=== PATIENT | male | born 2005 | race Hispanic/Latino ===

== ENCOUNTER 2024-03-30 14:14 | Emergency (ER) | payer OTHER, SELFPAY ==
--- NOTE | 2024-03-30 14:16 | ED.URI ---
HPI - URI/Sore Throat General Chief Complaint: Upper Respiratory Infection Stated Complaint: Upper Respiratory Symptoms Time Seen by Provider: 03/30/24 14:16 Source: patient Mode of arrival: ambulatory Limitations: no limitations History of Present Illness HPI Narrative: Mike is a 18-year-old male patient presenting to the clinic today with complaints of cough, nasal congestion, sore throat, and overall not feeling well. Symptoms just started this morning. He denies any known fever. MD elicited complaint: cough, sore throat, rhinorrhea and nasal congestion Related Data Allergies Allergy/AdvReac Type Severity Reaction Status Date / Time No Known Allergies Allergy Unverified 07/01/15 18:19 Review of Systems Review of Systems: Pertinent positives per HPI. Patient denies any fever, chills, rash, headache, visual changes, dizziness, shortness of breath, chest pain, palpitations, nausea, vomiting, diarrhea, constipation, abdominal pain, or any urinary issues. PMFSH Comments At the time of my signature, I reviewed and agree with the nursing past medical, surgical, social, and family history. There is no relevant family history pertinent to the patient complaint. Exam Narrative: General: Well-developed, well nourished, in no apparent distress Head: Normocephalic, atraumatic Eyes: Pupils equally round and reactive to light bilaterally, EOM intact, sclera and conjunctive clear, no discharge, lids normal Ears: TMs intact and clear, ear canals clear, no drainage, grossly hearing normal. Nose: Nares patent, clear nasal discharge, no inflammation, no sinus tenderness. Mouth: Oral pharynx without lesions or masses, good dentition, MMM. Postnasal drip Neck: Supple, trachea midline, no enlargement of anterior or posterior cervical nodes, no thyroid masses or goiter palpable. Cardio: Regular rate and rhythm, s1 and s2 normal, no murmur appreciated. Resp: Clear to auscultation bilaterally, no rhonchi, rales, wheezing or rubs Course Course Emergency Course: Portions of this record may have been created with voice recognition software. Level of Care: Express Care Visit Vital Signs Vital signs: Vital signs reviewed MDM - URI/Sore Throat MDM Narrative Medical decision making narrative: At the time of visit patient is resting comfortably on the exam table. Patient appears to be nontoxic. Labs: COVID, influenza, and strep test were all negative in the clinic today. We will send strep for culture. Plan: I suspect patient has URI/pharyngitis. Supportive measures were discussed with the patient and they voiced understanding discharge instructions and agrees to treatment plan. Return precautions reviewed Differential Diagnosis Differential diagnosis: Likely upper respiratory infection, otitis media, sinusitis, viral infection, bronchitis, influenza, pharyngitis and other (COVID) Discharge Plan Discharge Clinical Impression: Viral infection Upper respiratory infection Qualifiers: URI type: unspecified URI Qualified Code(s): J06.9 - Acute upper respiratory infection, unspecified Pharyngitis Qualifiers: Pharyngitis/tonsillitis etiology: unspecified etiology Qualified Code(s): J02.9 - Acute pharyngitis, unspecified Patient Disposition: Home, Self-Care Condition: Stable Instructions: Antibiotic Form, Pharyngitis (ED), Viral Syndrome (ED), Cold Symptoms (ED) Additional Instructions: COVID, influenza, and strep test were all negative in the clinic today. We will send strep for culture. Increase fluids and stay well hydrated Tylenol/motrin for pain/fever Flonase and OTC antihistamines as directed Vicks vapor rub to open sinuses Sinus rinses for congestion Cepacol spray, cough drops, throat lozenges, warm tea with honey/lemon, gargle salt water to soothe throat BRAT diet for diarrhea Clear liquids x 24 hours then advance as tolerated for nausea/vomiting Go to the ED if you develop a worsening in your condition- high fever not controlled by Tylenol or Motrin, dehydration, weakness, lethargy, shortness of breath, or chest pain. Follow up with your PCP in 3-5 days if symptoms persist. Patient Language: Citizen Of [place] Follow-up/Referrals: UNKNOWN,DOCTOR [Non-Staff] - Time of Disposition: 14:40 Quality NIHSS Nursing Documentation ED NIHSS nursing documentation: reviewed/agree
[2024-03-30 14:22] VITALS: BP 121/78; PULSE 90; RESP 16; TEMP 37.2; O2SAT 100
[2024-03-30 14:39] LABS: EDSTREPNEGPOS1 Negative (Negative)
[2024-03-30 14:48] LABS: EDCOVIDSCREEN Negative (Negative); EDINFLUASCREEN Negative (Negative); EDINFLUBSCREEN Negative (Negative)
== END 2024-03-30 14:45 | disposition home or self-care (01) ==
PROVIDERS: Emergency Provider Nurse Practitioner Family
DX: B34.9 Viral infection, unspecified (principal); J06.9 Acute upper respiratory infection, unspecified; J02.9 Acute pharyngitis, unspecified; Z20.822 Contact with and (suspected) exposure to COVID-19
CPT/HCPCS: 87081; 87426; 87804; 87880; 99203; G0463

== ENCOUNTER 2024-06-22 11:43 | Outpatient (CLI) | payer OTHER, SELFPAY ==
--- NOTE | ~2024-06-22 | XR_ITS ---
[id number] Ordering provider: TONIO Restrepo History: . M54.2 - Cervicalgia . Comparison: None. FINDINGS: VERTEBRAL BODIES: Normal height and alignment. No visible fracture or subluxation. The dens is intact . DISK SPACES: Well maintained. PARASPINOUS SOFT TISSUES: No prevertebral soft tissue swelling. IMPRESSION: No acute osseous abnormality cervical spine. Reviewed, dictated and finalized at location A.
== END 2024-06-22 11:44 | disposition home or self-care (01) ==
LOC: MICIMG 11:44
PROVIDERS: PCP Clinical Nurse Specialist; Visit Provider Clinical Nurse Specialist
DX: M54.2 Cervicalgia (principal)
CPT/HCPCS: 72040

== ENCOUNTER 2024-07-13 15:00 | Outpatient (NON) | payer OTHER, SELFPAY ==
--- OUTSIDE RECORDS SUMMARY | 2024-07-13 15:18 | XMS_ITS | Clinical Summary ---
Author Organization [facility] Address [address] [place] [address] Care Team Providers Care Wire Hanger Name Role Phone Unknown, Provider Primary Care Provider Unavaila ble Source Comments [facility],non-owned Affiliates and Associated Physician Practices is amultiple site organization consisting of ambulatory clinics and hospital sitesin [place], [place], [place] and [place]. This disclosure is being madepursuant to the Care Everywhere program and may not contain all information available regarding this patient. Last updated 17.[facility] Allergies No known active allergies Medications * Be aware that medications may not be up to date on this document. Alwaysverify current medications with the patient. 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:36 PM BILINGUAL SECRETARY Gender Identity Not on file Sexual Orientation Not on file Last Filed Vital Signs Vital Sign Reading Time Taken Comments Blood Pressure 118/86 11/19/2016 7:32 PM CDT Pulse 108 11/19/2016 7:32 PM CDT Temperature 37 C (98.6 F) 11/19/2016 7:32 PM CDT Respiratory Rate 28 11/19/2016 7:32 PM CDT Oxygen Saturation 98% 03/06/2016 3:13 PM BILINGUAL SECRETARY Inhaled Oxygen Concentration - - Weight 41.7 kg (91 lb 14.9 oz) 11/19/2016 7:32 P M CDT Height 147.3 cm (4' 10) 03/06/2016 3:13 PM BILINGUAL SECRETARY Body Mass Index - - Plan of Treatment Health Maintenance Due Date Last Done Comments HIV SCREENING 09/07/2019 HPV VACCINE (1 - Male 3-dose series) 09/07/2019 MENINGOCOCCAL (Group B) VACC INE SHARED DECISION-MAKING (1 of 2 - Standard) 2020 HEPATITIS C SCREENING 09/02/2022 DTAP/TDAP/TD VACCINES (1 - Tdap) 09/07/2023 HEPATITIS B VACCINE (1 of 3 - 19+ 3-dose series) 09/07/2023 COVID-19 VACCINE (1 - 2023-2 5 season) 2023 DEPRESSION SCREENING 02/12/2024 INFLUENZA VACCINE (Season Ended) 2024 ZOSTER VACCINE (1 of 2) 2054 HIB VACCINE Aged Out No longer eligi ble based on patient's age to complete this topic MENINGOCOCCAL GROUPS A/C/Y/W VACCINE Aged Out No longer eligible b ased on patient's age to complete this topic PNEUMOCOCCAL VACCINE Aged Out No long er eligible based on patient's age to complete this topic Insurance MEDICAID - [place] Care Teams Wire Hanger Relationship Specialty Start Date End Date Unknown, Provider PCP - General 03/06/16
--- OUTSIDE RECORDS SUMMARY | 2024-07-13 15:18 | XMS_ITS | Clinical Summary ---
Author Organization [facility] Address [address] [place] [address] Phone Care Team Providers Care Third Loader Name Role Phone Provider, None Primary Care Provider Unavailabl e Allergies No known active allergies Medications fluticasone (FLONASE) 50 MCG/ACT Suspension 2 Sprays by Nasal route. 03/06/2016 Active Active Problems No known active problems Immunizations Immunization Administration Dates Next Due DTAP VACCINE 02/16/2005,2004 DTAP-IPV 04/26/2009 DTAP/HEPB/IPV Vaccine 06/15/2005 HEP B/HIB Combined Vaccine 2004 Hepatitis A Vaccine, Pediatr ic/adolescent, 2 Dose Schedule 10/20/2013 Hepatitis A, Pediatric, Unsp ecified Formulation 04/26/2009 Hepatitis B Vaccine, Pediatric/adolescent 2004 Hib Vaccine,unspecified Formulation 02/16/2005 Human Papillomavirus (HPV) 9-valent Vaccine 04/13,01/10/2015 Human Papillomavirus Vaccine (HPV), quadrivalent 10/20/2013 Inactivated Polio Vaccine 02/16/2005,2004 Influenza Vaccine Quadrivalent Nasal 01/10/2015, 03/03/2014 Influenza Vaccine, Quadrivalent, PF 12/12/2018 MMR Vaccine 04/26/2009 MMRV 10/25/2009 Meningococcal Vaccine 10/19/2015 Pneumococcal Vaccine Peds - 7 Valent 06/15/2005, 02/16/2005,2004 TDAP Vaccine 10/19/2015 Varicella Vaccine Live 04/26/2009 Social History Tobacco Use Types Packs/Day Years Used Date Smoking Tobacco: Never Smokeless Tobacco: Never Alcohol Use Standard Drinks/Week Comments Never 0 (1 standard drink = 0.6 oz pur e alcohol) Sex and Gender Information Value Date Recorded Sex Assigned at Not on file Legal Sex Male 2:47 PM CDT Gender Identity Not on file Sexual Orientation Not on file Last Filed Vital Signs Vital Sign Reading Time Taken Comments Blood Pressure 98/66 10/06/2020 4:01 PM CDT Pulse 84 10/06/2020 4:01 PM CDT Temperature 36.3 C (97.4 F) 10/06/2020 4:01 PM CDT Respiratory Rate 12 10/06/2020 4:01 PM CDT Oxygen Saturation 98% 10/06/2020 4:01 PM CDT Inhaled Oxygen Concentration - - Weight 67.6 kg (149 lb) 10/06/2020 4:01 PM CDT Height - - Body Mass Index - - Plan of Treatment Health Maintenance Due Date Last Done Comments Hepatitis C Virus (HCV) Screening 2004 Meningococcal B Immunization (1 of 2 - Standard) 2020 Influenza Immunization (#1) 2023 11/0 02/2018, 01/10/2015, 03/03/2014 SARS-COV-2 Immunization ( - season) 2023 DTaP/Tdap/Td Immunization (6 - Td or Tdap) 10/18/2025 10/19/2015, 04/26/2009, 06/15/2005, Additional history exists Respiratory Syncytial Virus (RSV) Immunization (Adult) (1 - 1-dose 75+ series) 09/07/2079 Hepatitis B Immunization Completed 006, 2004, 2004 Pneumococcal Immunization Combined Aged Out 06/15/2005, 02/16/2005, 2004 No longer eligible based on patient's age to complete this topic Polio (IPV) Immunization Discontinued 010, 06/15/2005, 02/16/2005, Additional history exists Measles Mumps Rubella (MMR) Immunization Discontinued 10/25/2009, 04/26/2009 Varicella Immunization Discontinued 10/25/2009, 2009 Hepatitis A Immunization Discontinued 10/20/2013, 04/11 Human Papillomavirus (HPV) Immunization Completed 05/11/2015, 01/10/2015, 10/20/2013 Meningococcal Immunization (ACWY) Aged Out 10/19/2015 No longer eligible based on patient's age to complete this topic Rotavirus Immunization Aged Out No lo nger eligible based on patient's age to complete this topic Insurance [employer]ID [employer] Care Teams Third Loader Relationship Specialty Start Date End Date Provider, None [place] PCP - General 10/06/20
[2024-07-13 20:28] LABS: Add Urine Microscopic? NO; Appearance Urine Clear (Clear); Bilirubin Urine Negative (Negative); Blood Urine Negative (Negative); Color Urine Yellow (Yellow); Glucose Urine UA Negative (Negative); Ketones Urine Negative (Negative); Leukocyte Esterase Ur Negative LEU/UL (Negative); Nitrate Urine Negative (Negative); Protein Urine Negative (Negative); Specific Grav Ur 1.012 (1.001-1.035)
== END 2024-07-13 15:01 | disposition home or self-care (01) ==
LOC: ANHGOSHLAB 15:01
PROVIDERS: PCP Internal Medicine; Visit Provider Nurse Practitioner
DX: R31.9 Hematuria, unspecified (principal)
CPT/HCPCS: 81003

== ENCOUNTER 2024-07-20 08:55 | Outpatient (CLI) | payer OTHER, SELFPAY ==
--- NOTE | ~2024-07-20 | US_ITS ---
Testicular ultrasound with doppler. Indication: Left testicular pain. Technique: Real-time sonography the scrotum was performed. Color flow Doppler and Doppler spectral an alysis were performed. Findings: The testes are homogeneous in echotexture bilaterally. There is no evidence of an intrates ticular mass. The right testis measures 4.3 x 2.3 x 3.1 cm and the left 4.5 x 2.4 x 2.9 cm. There is color-flow seen to both testes. Arterial and venous spectral waveforms are seen in both testes. There is no sonographic evidence of torsion. The head of the epididymis is visualized bilaterally and is within normal limits. Impression: Unremarkable exam. No evidence of torsion. Reviewed, dictated and finalized at location . Impression: Unremarkable exam. No evidence of torsion.
== END 2024-07-20 08:56 | disposition home or self-care (01) ==
LOC: MICIMG 08:55
PROVIDERS: PCP Internal Medicine; Visit Provider Nurse Practitioner
DX: N50.812 Left testicular pain (principal)
CPT/HCPCS: 76870; 93976